=== PATIENT | female | born 2000 | race Caucasian/White ===

== ENCOUNTER 2022-08-24 10:17 | Emergency (ER) | payer SELFPAY ==
[~2022-08-24] VITALS: Ht 165.1 cm; Wt 88.0 kg
[2022-08-24 10:35] VITALS: BP 103/54
[2022-08-24 11:05] LABS: BASOPHILS % 0.3 % (0.0-2.0); EOSINOPHILS % 0.9 % (0.0-5.0); HEMATOCRIT. 38.3 % (36.0-48.0); HEMOGLOBIN. 13.2 g/dL (12.0-16.0); LYMPHOCYTES % 24.7 % (20.0-50.0); MEAN CORPUSCULAR HEMOGLOBIN 30.7 pg (28.0-32.0); MEAN CORPUSCULAR VOLUME 88.9 fL (81.0-99.0); MEAN PLATELET VOLUME 7.7 fl (7.4-10.4); MONOCYTES % 8.1 % (2.0-8.0); PLATELET 380 x1000/uL (130-400); RED BLOOD CELL COUNT 4.31 mill/uL (4.2-5.4); RED CELL DISTRIBUTION WIDTH 13.5 % (11.6-14.6)
[2022-08-24 11:13] LABS: CHLORIDE 104 mEq/L (98-107)
[2022-08-24 11:23] LABS: CLARITY URINE CLEAR (CLEAR); COLOR URINE YELLOW (YELLOW); KETONES URINE NEGATIVE (NEGATIVE); LEUKOCYTE ESTERASE URINE TRACE (NEGATIVE); NITRITE URINE NEGATIVE (NEGATIVE); OCCULT BLOOD URINE NEGATIVE (NEGATIVE); PROTEIN URINE NEGATIVE (NEGATIVE); SPECIFIC GRAVITY URINE 1.019 (1.005-1.030); UROBILINOGEN URINE 0.2 E.U./dL (0.2-1.0)
[2022-08-24 11:23] LABS: PROTHROMBIN TIME 10.9 sec (9.6-11.0)
[2022-08-24 11:35] LABS: B-HCG QUANTITATIVE 34783 mIU/mL (<3)
== END 2022-08-24 13:40 | disposition home or self-care (01) ==
LOC: ER 10:17
DX: O26.891 Other specified pregnancy related conditions, first trimester (principal); Z3A.01 Less than 8 weeks gestation of pregnancy; Z98.890 Other specified postprocedural states
CPT/HCPCS: 36415; 76801; 80053; 81003; 81025; 84702; 85025; 86850; 86900; 99284

== ENCOUNTER 2022-08-26 08:47 | Emergency (ER) | payer MEDICAID ==
[~2022-08-26] VITALS: Ht 157.5 cm; Wt 55.0 kg
[2022-08-26] MEDS ORDERED: PREN-135 MT (10:11)
[2022-08-26 10:28] VITALS: BP 112/61
== END 2022-08-26 10:29 | disposition home or self-care (01) ==
LOC: ER 08:47
DX: O20.0 Threatened abortion (principal); Z3A.01 Less than 8 weeks gestation of pregnancy
CPT/HCPCS: 36415; 84702; 99283

== ENCOUNTER 2022-09-03 13:25 | Emergency (ER) | payer MEDICAID ==
[~2022-09-03] VITALS: Ht 167.6 cm; Wt 65.0 kg
[~2022-09-03 13:25] MED LIST: PREN-135 MT
[2022-09-03 13:36] VITALS: BP 108/49
[2022-09-03 14:19] LABS: BASOPHILS % 0.4 % (0.0-2.0); EOSINOPHILS % 0.5 % (0.0-5.0); HEMATOCRIT. 37.9 % (36.0-48.0); HEMOGLOBIN. 12.8 g/dL (12.0-16.0); LYMPHOCYTES % 20.2 % (20.0-50.0); MEAN CORPUSCULAR HEMOGLOBIN 29.8 pg (28.0-32.0); MEAN CORPUSCULAR VOLUME 88.2 fL (81.0-99.0); MONOCYTES % 10.3 % (2.0-8.0); NEUTROPHILS % 68.6 % (40.0-76.0); PLATELET 324 x1000/uL (130-400); RED CELL DISTRIBUTION WIDTH 13.3 % (11.6-14.6)
[2022-09-03 14:23] LABS: CHLORIDE 103 mEq/L (98-107)
[2022-09-03 14:49] LABS: B-HCG QUANTITATIVE 38646 mIU/mL (<3)
[2022-09-03 16:18] LABS: CLARITY URINE CLEAR (CLEAR); COLOR URINE YELLOW (YELLOW); KETONES URINE NEGATIVE (NEGATIVE); LEUKOCYTE ESTERASE URINE TRACE (NEGATIVE); NITRITE URINE NEGATIVE (NEGATIVE); OCCULT BLOOD URINE NEGATIVE (NEGATIVE); PROTEIN URINE NEGATIVE (NEGATIVE); SPECIFIC GRAVITY URINE 1.011 (1.005-1.030)
== END 2022-09-03 16:27 | disposition home or self-care (01) ==
LOC: ER 13:25
DX: O03.4 Incomplete spontaneous abortion without complication (principal); Z3A.08 8 weeks gestation of pregnancy
CPT/HCPCS: 36415; 76801; 76817; 80053; 81003; 84702; 85025; 86850; 86900; 86901; 99291; Z7610

== ENCOUNTER 2022-09-24 22:03 | Emergency (ER) | payer MEDICAID ==
[~2022-09-24] VITALS: Ht 165.1 cm; Wt 66.0 kg
[2022-09-24 22:06] VITALS: BP 109/73
[2022-09-24 22:39] LABS: BASOPHILS % 0.2 % (0.0-2.0); EOSINOPHILS % 0.2 % (0.0-5.0); HEMATOCRIT. 36.7 % (36.0-48.0); HEMOGLOBIN. 12.4 g/dL (12.0-16.0); LYMPHOCYTES % 8.7 % (20.0-50.0); MEAN CORPUSCULAR HEMOGLOBIN 29.8 pg (28.0-32.0); MEAN PLATELET VOLUME 8.1 fl (7.4-10.4); MONOCYTES % 4.4 % (2.0-8.0); NEUTROPHILS % 86.5 % (40.0-76.0); PLATELET 299 x1000/uL (130-400); RED BLOOD CELL COUNT 4.17 mill/uL (4.2-5.4); RED CELL DISTRIBUTION WIDTH 13.3 % (11.6-14.6)
[2022-09-24 22:44] LABS: CHLORIDE 103 mEq/L (98-107)
[2022-09-24 23:21] LABS: CLARITY URINE CLOUDY (CLEAR); COLOR URINE RED (YELLOW); KETONES URINE 4+ (NEGATIVE); LEUKOCYTE ESTERASE URINE 1+ (NEGATIVE); NITRITE URINE NEGATIVE (NEGATIVE); OCCULT BLOOD URINE 3+ (NEGATIVE); PH URINE 5.5 (4.5-8.0); PROTEIN URINE 1+ (NEGATIVE); SPECIFIC GRAVITY URINE 1.028 (1.005-1.030)
[2022-09-25] MEDS ORDERED: HYDR-4001 MT (01:24)
[2022-09-25] MEDS ORDERED: AMOX500T2 MT (01:24)
[2022-09-25] MEDS ORDERED: HYDROCODONE/ACETAMINOPHEN 5/325MG TABLET PO ONE (01:30)
== END 2022-09-25 02:44 | disposition home or self-care (01) ==
LOC: ER 22:03
DX: O03.9 Complete or unspecified spontaneous abortion without complication (principal); Z3A.12 12 weeks gestation of pregnancy
CPT/HCPCS: 36415; 76801; 80053; 81003; 81025; 84702; 85025; 86850; 86900; 99284

== ENCOUNTER 2023-05-02 08:15 | Emergency (ER) | payer MEDICAID ==
[~2023-05-02] VITALS: Ht 167.6 cm; Wt 66.0 kg
[~2023-05-02 08:15] MED LIST changes: +AMOX500T2 MT; +HYDR-4001 MT
[2023-05-02 08:38] VITALS: TEMP 98.9; O2SAT 100
[2023-05-02 09:01] LABS: CLARITY URINE CLEAR (CLEAR); COLOR URINE YELLOW (YELLOW); GLUCOSE URINE NEGATIVE (NEGATIVE); KETONES URINE NEGATIVE (NEGATIVE); LEUKOCYTE ESTERASE URINE NEGATIVE (NEGATIVE); NITRITE URINE NEGATIVE (NEGATIVE); OCCULT BLOOD URINE NEGATIVE (NEGATIVE); PH URINE 7.5 (4.5-8.0); PROTEIN URINE NEGATIVE (NEGATIVE); SPECIFIC GRAVITY URINE 1.024 (1.005-1.030)
[2023-05-02 09:02] LABS: BASOPHILS % 0.2 % (0.0-2.0); EOSINOPHILS % 1.2 % (0.0-5.0); HEMATOCRIT. 41.9 % (36.0-48.0); HEMOGLOBIN. 14.3 g/dL (12.0-16.0); LYMPHOCYTES % 13.5 % (20.0-50.0); MEAN CORPUSCULAR HGB CONC 34.1 g/dL (31.0-37.0); MEAN CORPUSCULAR VOLUME 88.1 fL (81.0-99.0); MEAN PLATELET VOLUME 8.1 fl (7.4-10.4); MONOCYTES % 7.8 % (2.0-8.0); NEUTROPHILS % 77.3 % (40.0-76.0); PLATELET 309 x1000/uL (130-400); RED BLOOD CELL COUNT 4.75 mill/uL (4.2-5.4); WHITE BLOOD COUNT 9.7 x1000/uL (4.5-11.0)
[2023-05-02 09:23] LABS: ALANINE AMINOTRANSFERASE 7 IU/L (10-49); ALBUMIN 4.4 g/dL (3.2-4.8); ASPARTATE AMINOTRANSFERASE 20 IU/L (<34); BILIRUBIN TOTAL 0.6 mg/dL (0.1-1.0); CALCIUM 9.1 mg/dL (8.7-10.4); CARBON DIOXIDE 32 mEq/L (21-32); CHLORIDE 106 mEq/L (98-107); CREATININE 0.6 mg/dL (0.6-1.0); GLUCOSE 95 mg/dL (70-105); POTASSIUM 4.6 mEq/L (3.5-5.1); PROTEIN TOTAL 7.3 g/dL (6.0-8.3); SODIUM 138 mEq/L (136-145); UREA NITROGEN BLOOD 10 mg/dL (9-23)
[2023-05-02] MEDS ORDERED: ONDA4TAB50 MT (09:55)
[2023-05-02] MEDS ORDERED: ONDANSETRON HCL 4MG/2ML INJ IM ONE (10:00)
[2023-05-02 10:43] VITALS: BP 110/59; PULSE 85; RESP 18
== END 2023-05-02 10:45 | disposition home or self-care (01) ==
LOC: ER 08:15
DX: K52.9 Noninfective gastroenteritis and colitis, unspecified (principal)
CPT/HCPCS: 80053; 81003; 81025; 83690; 85025; 36415; 96372; 99283; J2405; Z7610

== ENCOUNTER 2023-07-28 08:54 | Emergency (ER) | payer MEDICAID ==
[~2023-07-28] VITALS: Ht 165.1 cm; Wt 73.0 kg
[~2023-07-28 08:54] MED LIST changes: +ONDA4TAB50 MT
[2023-07-28 09:07] VITALS: O2SAT 100
[2023-07-28 09:39] LABS: BASOPHILS % 0.3 % (0.0-2.0); EOSINOPHILS % 1.2 % (0.0-5.0); HEMATOCRIT. 37.8 % (36.0-48.0); HEMOGLOBIN. 12.8 g/dL (12.0-16.0); LYMPHOCYTES % 22.1 % (20.0-50.0); MEAN CORPUSCULAR HEMOGLOBIN 29.8 pg (28.0-32.0); MEAN CORPUSCULAR HGB CONC 33.9 g/dL (31.0-37.0); MEAN CORPUSCULAR VOLUME 88.1 fL (81.0-99.0); MONOCYTES % 8.5 % (2.0-8.0); NEUTROPHILS % 67.9 % (40.0-76.0); PLATELET 340 x1000/uL (130-400); RED BLOOD CELL COUNT 4.29 mill/uL (4.2-5.4); RED CELL DISTRIBUTION WIDTH 13.7 % (11.6-14.6); WHITE BLOOD COUNT 8.4 x1000/uL (4.5-11.0)
[2023-07-28 09:53] LABS: ALANINE AMINOTRANSFERASE 8 IU/L (10-49); ALBUMIN 4.4 g/dL (3.2-4.8); ASPARTATE AMINOTRANSFERASE 20 IU/L (<34); BILIRUBIN TOTAL 0.5 mg/dL (0.1-1.0); CALCIUM 8.8 mg/dL (8.7-10.4); CARBON DIOXIDE 26 mEq/L (21-32); CHLORIDE 106 mEq/L (98-107); CREATININE 0.7 mg/dL (0.6-1.0); GLUCOSE 77 mg/dL (70-105); PROTEIN TOTAL 7.7 g/dL (6.0-8.3); SODIUM 138 mEq/L (136-145); UREA NITROGEN BLOOD 12 mg/dL (9-23)
[2023-07-28 10:34] LABS: HCG SCREEN POSITIVE
[2023-07-28 10:35] LABS: CLARITY URINE CLEAR (CLEAR); COLOR URINE YELLOW (YELLOW); GLUCOSE URINE NEGATIVE (NEGATIVE); KETONES URINE NEGATIVE (NEGATIVE); LEUKOCYTE ESTERASE URINE TRACE (NEGATIVE); NITRITE URINE NEGATIVE (NEGATIVE); OCCULT BLOOD URINE NEGATIVE (NEGATIVE); PROTEIN URINE NEGATIVE (NEGATIVE); SPECIFIC GRAVITY URINE 1.022 (1.005-1.030)
[2023-07-28 10:48] LABS: BACTERIA URINE 3+; RBC URINE 0-2 /hpf (0-2); SQUAMOUS EPITHELIAL CELL URINE 1+ /lpf (RARE/1+); YEAST URINE NONE SEEN
[2023-07-28] MEDS ORDERED: METO5TAB86 MT (13:23)
[2023-07-28] MEDS ORDERED: NITR-87 MT (13:23)
[2023-07-28 13:26] VITALS: BP 110/60; PULSE 79; RESP 16; TEMP 98.5
== END 2023-07-28 13:32 | disposition home or self-care (01) ==
LOC: ER 09:03
DX: O23.41 Unspecified infection of urinary tract in pregnancy, first trimester (principal); N39.0 Urinary tract infection, site not specified; Z3A.01 Less than 8 weeks gestation of pregnancy; Z98.890 Other specified postprocedural states
CPT/HCPCS: 80053; 81003; 81025; 84703; 84702; 83690; 85025; 86850; 86900; 86901; 36415; 76801; 76817; 99284; Z7610